=== PATIENT | female | born 1975 | race Caucasian/White ===

== ENCOUNTER 2016-12-13 13:39 | Emergency (ER) | payer OTHER ==
[~2016-12-13] VITALS: Ht 167.6 cm; Wt 147.0 kg
[~2016-12-13 13:39] MED LIST: IBUP-974 PO; PREN-385 PO
[2016-12-13 14:11] VITALS: BP 157/98
--- NOTE | 2016-12-13 18:50 | NUR ---
NO ANSWER OUT IN ER LOBBY OR RESTROOM
--- NOTE | 2016-12-13 18:50 | NUR ---
PATIENT LEFT WITHOUT BEING SEEN BY DR. NUNES. NO FURTHER CARE PROVIDED FOR PATIENT.
== END 2016-12-13 18:50 | disposition left against medical advice (07) ==
LOC: MED 13:39
DX: M79.602 Pain in left arm (principal); Z53.21 Procedure and treatment not carried out due to patient leaving prior to being seen by health care provider

== ENCOUNTER 2017-02-11 08:31 | Emergency (ER) | payer OTHER ==
[~2017-02-11] VITALS: Ht 162.6 cm; Wt 139.7 kg
[2017-02-11 08:35] VITALS: BP 160/96
--- NOTE | 2017-02-11 08:40 | NUR ---
PATIENT TO BED 7 AT THIS TIME.
--- NOTE | 2017-02-11 09:10 | NUR ---
41/F c/o lower back pain x4 days. Pt denies injury or trauma. Pt c/o 8/10, sharp, constant pain. Denies fever or chills. Denies N/V/D. Pt is AOX4, ambulates with steady gait. VSS.
--- NOTE | 2017-02-11 09:12 | NUR ---
Patient being evaluated by Dr. Tobias at bedside.
[2017-02-11] MEDS ORDERED: KETOROLAC 60 MG/2 ML VIAL IM ONE (09:20)
--- NOTE | 2017-02-11 10:00 | NUR ---
PAIN MUCH IMPROVED.ABLE TO SEAT UP
[2017-02-11 10:10] VITALS: BP 148/101
--- NOTE | 2017-02-11 10:10 | NUR ---
Patient discharged with v/s stable. Written and verbal after care instructions given and explained. Patient alert, oriented and verbalized understanding of instructions. Ambulatory with steady gait. All questions addressed prior to discharge. ID band removed. Patient advised to follow up with PMD. Rx of MOTRIN,CIPRO given. Patient educated on indication of medication including possible reaction and side effects. Opportunity to ask questions provided and answered.
--- NOTE | 2017-02-11 10:10 | NUR ---
Chart checked and completed. The patient's care was reviewed and supervised by Ariana Camacho RN.
== END 2017-02-11 10:10 | disposition home or self-care (01) ==
LOC: MED 08:31
DX: N39.0 Urinary tract infection, site not specified (principal); M54.5 Low back pain; I10 Essential (primary) hypertension; E07.9 Disorder of thyroid, unspecified
CPT/HCPCS: 81002; 81025; 96372; 99283; J1885

== ENCOUNTER 2019-09-17 09:02 | Emergency (ER) | payer OTHER ==
[~2019-09-17] VITALS: Ht 162.6 cm; Wt 149.7 kg
[2019-09-17 09:02] VITALS: BP 143/52
--- NOTE | 2019-09-17 09:02 | NUR ---
TO BED # 02 , BROUGHT IN BY AMBULANCE, WITH C/O LOWER BACK PAIN, RADIATING TO HER LOWER ABD PAIN, STARTED YESTERDAY
--- NOTE | 2019-09-17 09:20 | NUR ---
BROUGHT IN BY AMBULANCE FROM HOME WITH C/O LOWER BACK PAIN, RADIATINGTO HER LOWER ABD, STARTED YESTERDAY, NO TRAUMA NOR INJURY. PT DENIES ANY FEVER, CP, SOB, COUGH, OR UTI SX AT THIS TIME; PATIENT STATES PAIN OF 10/10 AT THIS TIME; VSS; PATIENT POSITIONED FOR COMFORT; HOB ELEVATED; BEDRAILS UP X2; BED DOWN. ER MD MADE AWARE OF PT STATUS.
[2019-09-17] MEDS ORDERED: KETOROLAC 60 MG/2 ML VIAL IM ONE (09:55)
--- NOTE | 2019-09-17 10:06 | NUR ---
PT IS TAKING TO CT SCAN VIA WHEELCHAIR ASSISTED BY IMAGING TECHS.
--- NOTE | 2019-09-17 11:12 | NUR ---
Dr. [place] is re-evaluating the patient at bedside.
[2019-09-17 12:01] VITALS: BP 101/49
--- NOTE | 2019-09-17 12:01 | NUR ---
Patient discharged with v/s stable. Written and verbal after care instructions given and explained. Patient alert, oriented and verbalized understanding of instructions. Ambulatory with steady gait. All questions addressed prior to discharge. ID band removed. Patient advised to follow up with PMD. Rx of Tramadol, Motrin, and Robaxin given. Patient educated on indication of medication including possible reaction and side effects. Opportunity to ask questions provided and answered.
== END 2019-09-17 12:01 | disposition home or self-care (01) ==
LOC: MED 09:02
DX: M54.42 Lumbago with sciatica, left side (principal); E11.9 Type 2 diabetes mellitus without complications; I10 Essential (primary) hypertension; E07.9 Disorder of thyroid, unspecified; Z79.899 Other long term (current) drug therapy
CPT/HCPCS: 72131; 81002; 81025; 96372; 99284; J1885; 99283